=== PATIENT | male | born 1950 | race Caucasian/White ===

== ENCOUNTER 2019-08-06 11:06 | Emergency (ER) | payer MEDICARE, OTHER ==
[2019-08-06] MEDS ORDERED: HYDROmorphone 1 MG/ML CARPUJECT IM STA (11:44)
[2019-08-06] MEDS ORDERED: PROMETHAZINE 25 MG/1 ML VIAL IM STA (11:44)
--- NOTE | 2019-08-06 11:44 | ED Physician Documentation ---
PD HPI LOWER EXT INJURY - Stated complaint Stated Complaint: L LEG PX - Chief complaint Chief Complaint: Trauma Ext - History obtained from History obtained from: Patient - History of Present Illness PD HPI LOW EXT INJURY LOCATION: Left, Upper leg Type of injury: No: Fall Where injury occurred: Street Timing - onset: How many days ago (5) Timing - duration: Days (5) Timing - details: Abrupt onset Improved by: Immobilization Associated symptoms: Tingling Contributing factors: No: Anticoagulated Similar symptoms before: Has not had sx before Recently seen: Not recently seen - Additional information Additional information: This is a 68-year-old man who was stepping off a curb after he had 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 He did not fall. This happened 4 days prior to presentation he has been icing and heating the area as well as laying in a tub of hot water that is the only thing that seems to relieve it soon as he gets out of the tub it starts to come back again. There is pain that is going down the inner aspect of the Left upper leg to the knee associated with a little bit of numbness and tingling. He has not noticed any bruising. He has not noticed whether or not it is actually painful to touch. He has no testicular or back pain. He says it is okay to stand on it now initially he was unable to put weight on the leg at all. He has a "throbbing" type of pain in it he has been taking Motrin 800 mg every 6-8 hours which alleviates the pain somewhat last dose was 530 this morning. He is been experiencing reflux recently but no nausea or vomiting. Denies any dysuria urine continence. He has never had a hernia but is concerned about that after researching on the Internet. Review of Systems Constitutional: denies: Fever Respiratory: denies: Dyspnea GI: reports: Other (Reports reflux). denies: Abdominal Pain, Nausea, Vomiting, Diarrhea : denies: Dysuria, Incontinent Skin: denies: Rash Musculoskeletal: reports: Extremity pain (Left upper leg at the groin). denies: Back pain Neurologic: reports: Numbness (Numbness and tingling throughout the left leg randomly). denies: Syncope PD PAST MEDICAL HISTORY - Past Medical History Past Medical History: Yes Cardiovascular: Hypertension, High cholesterol Respiratory: COPD, Sleep apnea Neuro: None Endocrine/Autoimmune: HyPOthyroidism GI: GERD : None HEENT: Chronic vision loss Psych: None Musculoskeletal: None Derm: None - Past Surgical History Past Surgical History: No - Present Medications Home Medications: Ambulatory Orders Medication Instructions Recorded Confirmed Aspirin 81 mg PO DAILY 08/06/19 08/06/19 Hydrocodone/Acetaminophen 1 - 2 each PO Q6H PRN #10 tablet 08/06/19 [Hydrocodon-Acetaminophen 5-325] - Allergies Allergies/Adverse Reactions: Allergies Allergy/AdvReac Type Severity Reaction Status Date / Time No Known Drug Allergies Allergy Verified 08/06/19 11:11 - Social History Does the pt smoke?: No Smoking Status: Former smoker Does the pt drink ETOH?: No Does the pt have substance abuse?: No - Immunizations Immunizations are current?: Yes - POLST Patient has POLST: No PD ED PE NORMAL - Vitals Vital signs reviewed: Yes - General General: Alert and oriented X 3, No acute distress, Well developed/nourished - HEENT HEENT: Atraumatic, PERRL - Respiratory Respiratory: No respiratory distress - Abdomen Abdomen: Normal bowel sounds, Soft, Non tender, Non distended, No organomegaly, Other (No inguinal hernia) - Extremities Extremities: No deformity, No tenderness to palpate, Other (There is tenderness with palpation of the inner left thigh and at the insertion point of the [place] on the pubic bone. He has equal femoral pulses without any pulsatile mass in the left groin. There is no hernia. He has equal quadricep reflexes. 5 out of 5 great toe extension bilaterally and sensations intact to light touch in the lower extremities.) Results - Vitals Vitals: Vital Signs - 24 hr 08/06/19 08/06/19 11:11 11:27 Temperature 37.4 C Heart Rate 108 H 100 Respiratory 18 16 Rate Blood Pressure 128/68 132/70 H O2 Saturation 96 96 Oxygen O2 Source Room air PD MEDICAL DECISION MAKING - ED course Complexity details: d/w patient ED course: Patient has tenderness in the musculature of the left upper thigh particularly at the insertion point on the inferior pubic ramus. Recommended that he stop using heat but apply ice. Take the ibuprofen 800 mg every 8 hours for the next 2 to 3 days. Gentle stretching exercises which we discussed. I have given a prescription for just a few doses of hydrocodone. Follow-up with the primary care provider for further pain management if he is not improving. Departure - Departure Disposition: 01 Home, Self Care Clinical Impression: Muscle strain of left thigh Qualifiers: Encounter type: initial encounter Qualified Code(s): S76.912A - Strain of unspecified muscles, fascia and tendons at thigh level, left thigh, initial encounter Condition: Good Instructions: ED Strain Groin Follow-Up: your,doctor [Other] [facility] [Provider Group] Prescriptions: Hydrocodone/Acetaminophen [Hydrocodon-Acetaminophen 5-325] 1 - 2 each PO Q6H PRN #10 tablet PRN Reason: pain Comments: Apply ice to the groin. Take the Motrin 800 mg every 8 hours with food for the next 2 to 3 days. Gentle stretching exercises as we discussed. Avoid direct heat. May take the hydrocodone if needed for pain but do not drive or operate machinery or take additional Tylenol with it. Follow-up with your primary care provider if you need further pain management.
[2019-08-06 12:01] VITALS: BP 157/98
== END 2019-08-06 12:01 | disposition home or self-care (01) ==
LOC: ED 11:06
DX: S76.912A Strain of unspecified muscles, fascia and tendons at thigh level, left thigh, initial encounter (principal); X58.XXXA Exposure to other specified factors, initial encounter; Y93.01 Activity, walking, marching and hiking; I10 Essential (primary) hypertension; Z87.891 Personal history of nicotine dependence
CPT/HCPCS: 96372; 99283; 99284; J1170